=== PATIENT | female | born 1935 | race Caucasian/White ===

== ENCOUNTER 2017-01-14 05:37 | Inpatient (IN) | payer MEDICARE ==
[2017-01-11 13:40] VITALS: BMI 35.7
[2017-01-14] MEDS ORDERED: Midazolam HCl 2 mg/2 ml Vial ONE (06:05)
[2017-01-14] MEDS ORDERED: Fentanyl 100 MCG/2 ML VIAL ONE ×4 (06:05→09:57)
[2017-01-14] MEDS ORDERED: Sodium Chloride 0.9% 10 ML ONE (06:47)
[2017-01-14] MEDS ORDERED: Glycopyrrolate 0.2 MG/ML 5 ML SYRINGE ONE (07:28)
[2017-01-14] MEDS ORDERED: Propofol 200 MG/20 ML VIAL ONE (07:28)
[2017-01-14] MEDS ORDERED: Lidocaine 1% PF 5 ML VIAL ONE (07:28)
[2017-01-14] MEDS ORDERED: Ondansetron HCl/PF 4 MG/2 ML Vial ONE (07:28)
[2017-01-14] MEDS ORDERED: Dexamethasone 20 MG/5 ML VIAL ONE (07:28)
[2017-01-14] MEDS ORDERED: Morphine Sulfate 2 MG/ML SYRINGE SLOW IVP PRN (07:49)
[2017-01-14] MEDS ORDERED: Promethazine HCl 25 MG/ML VIAL SLOW IVP PRN (07:49)
[2017-01-14] MEDS ORDERED: Meperidine HCl/PF 25 MG/ML VIAL SLOW IVP PRN (07:49)
[2017-01-14] MEDS ORDERED: Labetalol HCl 100 MG/20 ML VIAL ONE (09:02)
[2017-01-14] MEDS ORDERED: Labetalol HCl 100 MG/20 ML VIAL SLOW IVP PRN (09:05)
--- NOTE | 2017-01-14 09:17 | OP ---
DATE OF PROCEDURE: 01/14/2017 SURGEON: Oz Lundy M.D. [employer]PER[employer]: [facility] Collier PROCEDURES PERFORMED: Removal of hardware C6-C7, exploration of spinal fusion C6-C7, anterior cervi paul discectomy and fusion C4-C5 and C5-C6, interbody arthrodesis, intervertebral biomechanical devic e, local morselized autograft, demineralized bone matrix, anterior titanium instrumentation C4-C5 an d C5-C6. PROCEDURE IN DETAIL: The patient was brought into the operating room and intubated. She was positi oned supine with the head in modest extension on a gel-filled donut. Incision was made in the right precervical area and dissecting medial to the sternocleidomastoid muscle. We identified the anteri or cervical spine and our level was confirmed by x-ray. We removed the prior plate and explored the spinal fusion and found to be solid. We placed distraction between C4 and C6, incised the interver tebral disc, removed the anterior bone spurs and using the operating microscope and microdissection techniques, completely decompressed the neural elements between C4 and C6 beneath the posterior long itudinal ligament. Next, the bony endplates were decorticated for the purpose of arthrodesis and ap propriately sized intervertebral biomechanical PEEK device were brought into the field, filled with demineralized bone matrix and local morselized autograft, and tapped into place securely at C4-C5 an d C5-C6. Next, an anterior plate was brought in the field and secured to C4, C5, and C6 using two 1 4 mm screws at each level. The wound was then extensively irrigated, immaculate hemostasis was secu red, and the wound was closed in anatomic layers over a drain.
[2017-01-14] MEDS ORDERED: Promethazine HCl 25 MG/ML VIAL ONE (10:32)
[2017-01-14] MEDS ORDERED: Acetaminophen 325 MG TAB PO PRN (12:36)
[2017-01-14] MEDS ORDERED: Acetaminophen 650 MG Suppository PR PRN (12:36)
[2017-01-14] MEDS ORDERED: Sodium Chloride 0.9% 1,000 ML IV SCH ×2 (12:36→14:18)
[2017-01-14] MEDS ORDERED: Ondansetron HCl/PF 4 MG/2 ML Vial IVP PRN (12:38)
[2017-01-14] MEDS: tiZANidine HCl 4 MG TAB PO PRN (12:46)
[2017-01-14] MEDS: HYDROcodone/Acetaminophen 7.5/325 mg Tablet PO PRN ×2 (14:16→20:30)
[2017-01-14] MEDS ORDERED: Dextrose 5% in Water 1,000 ML IV PRN (14:21)
[2017-01-14] MEDS ORDERED: Dextrose 50% Abboject 50 ML SYRINGE SLOW IVP PRN (14:21)
[2017-01-14] MEDS ORDERED: Benzonatate 100 MG CAP PO PRN (14:28)
[2017-01-14] MEDS ORDERED: cloNIDine HCl 0.1 MG TAB PO PRN (14:28)
[2017-01-14] MEDS ORDERED: Docusate 100 MG CAP PO PRN (14:28)
[2017-01-14] MEDS ORDERED: Nitroglycerin 0.4 MG TAB (25 Tab Bottle) SL PRN (14:28)
[2017-01-14] MEDS ORDERED: Zolpidem Tartrate 5 MG TAB PO PRN (14:28)
[2017-01-14 14:49] LABS: #Monocytes 0.1 thou/uL (0.11-0.59); #Neutrophils 12.8 thou/uL (1.40-6.50); %Basophils 0.1 % (0.0-1.0); %Eosinophils 0.2 % (0.0-10.0); %Lymphocytes 7.5 % (21.0-51.0); %Monocytes 0.6 % (0.0-10.0); Hematocrit 39.2 % (36.0-47.0); Mean Platelet Volume 8.9 fL (7.4-10.4); Red Blood Cell (RBC) Count 4.04 mill/uL (4.20-5.40); White Blood Cell (WBC) Count 13.9 thou/uL (4.8-10.8)
[2017-01-14 15:04] LABS: Anion Gap 17 mmol/L (10-20); BUN (Urea Nitrogen) 37 mg/dL (9.8-20.1); Calc. Creatinine Clearance 38 mL/min (70-130); Calcium 9.5 mg/dL (7.8-10.44); Carbon Dioxide 20 mmol/L (23-31); Chloride 104 mmol/L (98-107); Estimated GFR-MDRD 27
[2017-01-14] MEDS: HumaLOG 300 UNITS/3 ML VIAL SC PRN ×2 (15:09→22:27)
[2017-01-14] MEDS ORDERED: Atorvastatin Calcium 40 MG TAB PO SCH (21:00)
--- NOTE | 2017-01-14 22:04 | CON ---
DATE OF CONSULTATION: 01/14/2017 CONSULTING PHYSICIAN: Dr. Lundy. REASON FOR CONSULTATION: Medical management. REASON FOR ADMISSION: Neck surgery. HISTORY OF PRESENT ILLNESS: A 81-year-old white female with past medical history of hypertension, hyperlipidemia, obstructive sleep apnea, CKD, type 2 diabetes, hypothyroidism, who came to the hospital with neck pain and had elective surgery with a cervical fusion surgery. She is admitted overnight for observation and Medicine team is consulted for medical management. Patient is feeling better other than the pain and she is on pain medicine ordered. She denies any nausea, vomiting. She has been started on some ice chips and is tolerating well. She could not take pills without eating anything. No fever or chills reported. No skin rash. No belly pain. No abdominal pain. No chest pain, palpitation, shortness of breath. PAST MEDICAL HISTORY: Positive for hypertension, hyperlipidemia, obstructive sleep apnea, CKD, type 2 diabetes, hypothyroidism, chronic pain, osteoarthritis , obesity. PAST SURGICAL HISTORY: Plastic surgery, back surgery, right cataract surgery, neck surgery, left knee scope and right breast tumor removal, hysterectomy. HOME MEDICATIONS: Glipizide 5 mg q.a.m., Benadryl 50 mg p.o. b.i.d., Aldactone 25 p.o. q.a.m., ranitidine 75 mg p.o. at bedtime, metoprolol 25 mg q.a.m., Synthroid 100 mcg p.o. q.a.m., Lantus 35 units in the morning and 60 units in the evening, 1 mg p.o. q.a.m., vitamin D3 1000 p.o. b.i.d., Lipitor 40 mg at bedtime, allopurinol 150 mg p.o. q.a.m. ALLERGIES: Allergic to FUROSEMIDE. SOCIAL HISTORY: No smoking, alcohol, or illicit drug abuse. FAMILY HISTORY: No history of any heart disease reported. REVIEW OF SYSTEMS: The following complete review of systems was negative, unless otherwise mentioned in the HPI or below: Constitutional: Weight loss or gain, ability to conduct usual activities. Skin: Rash, itching. Eyes: Double vision, pain. ENT/Mouth: Nose bleeding, neck stiffness, pain, tenderness. Cardiovascular: Palpitations, dyspnea on exertion, orthopnea. Respiratory: Shortness of breath, wheezing, cough, hemoptysis, fever or night sweats. Gastrointestinal: Poor appetite, abdominal pain, heartburn, nausea, vomiting, constipation, or diarrhea. Genitourinary: Urgency, frequency, dysuria, nocturia. Musculoskeletal: Pain, swelling. Neurologic/Psychiatric: Anxiety, depression. Allergy/Immunologic: Skin rash, bleeding tendency. PHYSICAL EXAMINATION: GENERAL: This is an elderly female in no apparent distress. VITAL SIGNS: Temperature 97.9, pulse . HEENT: Atraumatic, normocephalic. Oral mucosa is moist. NECK: Supple. CARDIOVASCULAR: S1, S2 heard. Regular rate and rhythm. RESPIRATORY: Clear. GI: Abdomen is soft. Bowel sounds are heard. MUSCULOSKELETAL: No tenderness. No edema. DERMATOLOGIC: No skin rash. NEUROLOGIC: Alert, awake, moving all the extremities. PSYCHIATRIC: Mood and affect normal. LABORATORY AND X-RAY FINDINGS: Not done today. Recently potassium was 5.2. Plan is to repeat labs. ASSESSMENT AND PLAN: 1. Cervical pain with chronic pain and status post cervical fusion. 2. Type 2 diabetes, on glipizide and Lantus at home. Plan is to hold Lantus and glipizide. We will continue on sliding scale insulin. Patient will be monitored. Her last glucose was only 111. She was n.p.o. and will adjust the medication based on her blood sugar level. We will continue to monitor a.c. and at bedtime. 3. History of edema. We will hold spironolactone given hyperkalemia and she is currently on IV fluids postoperatively. 4. History of hypertension. We will continue on home medications. 5. History of hypothyroidism. We will continue levothyroxine at home doses as tolerated. 6. Hyperlipidemia. Continue on statin. 7. History of gout. We will continue on allopurinol. 8. Pain control P.r.n. order set will be placed. 9. Diet: Ordered. The patient will be monitored closely. Thank you for the consult. We will follow. MEHRDADD
[2017-01-15] MEDS: HYDROcodone/Acetaminophen 7.5/325 mg Tablet PO PRN ×2 (05:31→13:07)
[2017-01-15] MEDS: HumaLOG 300 UNITS/3 ML VIAL SC PRN ×2 (05:34→12:57)
--- NOTE | 2017-01-15 08:51 | PDOC.PN ---
- Subjective Encounter Start Date: 01/15/17 Encounter Start Time: 08:47 Patient seen and examined. No new complaints. No overnight events. Vomited this AM as she took meds empty stomach. pain better and feels better. KARLI drain out wants to go home. working with PT this AM. - Objective MAR Reviewed: Yes Vital Signs & Weight: Vital Signs (12 hours) Temp Pulse Resp BP Pulse Ox 01/15/17 08:00 97.6 F 74 20 170/72 H 01/15/17 04:45 98.2 F 69 16 157/97 H 96 01/15/17 00:15 17 Weight Weight 215 lb I&O: 01/14/17 01/15/17 01/16/17 06:59 06:59 06:59 Output Total 29 Balance -29 Result Diagrams: 01/14/17 14:38 01/14/17 14:38 Additional Labs: Accuchecks 01/15/17 01/14/17 01/14/17 05:33 22:16 15:58 POC Glucose 213 H 274 H 254 H 01/14/17 15:04 POC Glucose 251 H Phys Exam - Physical Examination Constitutional: NAD HEENT: sclera anicteric Neck: supple Respiratory: no wheezing, no rales Cardiovascular: RRR Gastrointestinal: soft Musculoskeletal: no edema Neurological: non-focal, moves all 4 limbs Psychiatric: normal affect, A&O x 3 Skin: no rash Dx/Plan (1) Diabetes mellitus Code(s): E11.9 - TYPE 2 DIABETES MELLITUS WITHOUT COMPLICATIONS Status: Acute (2) HTN (hypertension) Code(s): I10 - ESSENTIAL (PRIMARY) HYPERTENSION Status: Acute (3) Hypothyroidism Code(s): E03.9 - HYPOTHYROIDISM, UNSPECIFIED Status: Acute (4) Gout Code(s): M10.9 - GOUT, UNSPECIFIED Status: Acute - Plan cont current plan of care, plan discussed w/ family * . wiill lower dose of home insulin and titrate as needed. continue to monitor BG. DC IV fluids will hold spironolactone post op will increase the metoprolol dose and monitor BP after the AM dose today. will titrate the doses as needed. DC planning per primary team. will follow.
[2017-01-15] MEDS ORDERED: Levothyroxine Sodium 100 MCG TAB PO SCH (09:00)
[2017-01-15] MEDS ORDERED: ESTRADIOL 1 MG PO SCH (09:00)
[2017-01-15] MEDS ORDERED: Estradiol 1 MG TAB PO SCH (09:00)
[2017-01-15] MEDS ORDERED: Non-Formulary Item 1 EACH (Metoprolol Succinate [Metoprolol Succinate] 25 MG) PO SCH (09:00)
[2017-01-15] MEDS ORDERED: Allopurinol 300 MG TAB PO SCH (09:00)
[2017-01-15] MEDS ORDERED: Insulin Detemir 100 UNITS/ML 15 UNITS in Pre-Filled Syringe 1 EACH SC SCH (09:00)
[2017-01-15 11:30] VITALS: BP 170/75; TEMP 97.8
[2017-01-15] MEDS: tiZANidine HCl 4 MG TAB PO PRN (15:56)
[2017-01-15] MEDS ORDERED: Insulin Detemir 100 UNITS/ML 8 UNITS in Pre-Filled Syringe 1 EACH SC SCH (21:00)
--- NOTE | 2017-01-15 22:42 | DIS ---
The patient is an 81-year-old, female with past medical history of cervical stenosis with cervical myelopathy, who underwent C4-C6 ACDF. The patient's surgery was uncomplicated; however, KARLI drain was placed intraoperatively. KARLI had minimal output overnight and was removed the next mornin g. The patient tolerated the surgery well. Her pain was well controlled with p.o. medications. Kristi ny was ambulatory in the department without difficulty. She received PT and OT therapy, who agreed t hat patient was appropriate for discharge home. She is tolerating her diet, voiding appropriately. Her incision is soft. Dressing is dry. I discussed the patient home care and instructions. She w ill follow up with us in 2 weeks as scheduled. I provided her with scripts for [facility] and Zanaflex. She is instructed to reach out for any additional questions or concerns.
== END 2017-01-15 16:00 | disposition home or self-care (01) | DRG 473 ==
LOC: SURG A 05:37 → 3SE 10:02 → EDSTATUS 13:50
PROVIDERS: ADMIT Neurological Surgery; ATTEND Neurological Surgery
PROC: 0RG20A0 Fusion of 2 or more Cervical Vertebral Joints with Interbody Fusion Device, Anterior Approach, Anterior Column, Open Approach (ICD-10-PCS; principal; 2017-01-14)
PROC: 0RG2070 Fusion of 2 or more Cervical Vertebral Joints with Autologous Tissue Substitute, Anterior Approach, Anterior Column, Open Approach (ICD-10-PCS; 2017-01-14)
PROC: 0RB30ZZ Excision of Cervical Vertebral Disc, Open Approach (ICD-10-PCS; 2017-01-14)
PROC: 0RP104Z Removal of Internal Fixation Device from Cervical Vertebral Joint, Open Approach (ICD-10-PCS; 2017-01-14)
DX: M47.12 Other spondylosis with myelopathy, cervical region (principal); E11.22 Type 2 diabetes mellitus with diabetic chronic kidney disease; E87.5 Hyperkalemia; M48.02 Spinal stenosis, cervical region; E78.5 Hyperlipidemia, unspecified; E03.9 Hypothyroidism, unspecified; M19.90 Unspecified osteoarthritis, unspecified site; E66.9 Obesity, unspecified; Z68.35 Body mass index [BMI] 35.0-35.9, adult; I12.9 Hypertensive chronic kidney disease with stage 1 through stage 4 chronic kidney disease, or unspecified chronic kidney disease; N18.2 Chronic kidney disease, stage 2 (mild); G47.33 Obstructive sleep apnea (adult) (pediatric); G89.29 Other chronic pain
CPT/HCPCS: 36415; 36416; 80048; 85025; 85027; 93005; 93010; A4216; C1713; G8978-GP-CH; G8979-GP-CH; G8980-GP-CH; J0360; J1100; J1815; J2001; J2250; J2270; J2405; J2550; J2704; J3010; J3490

== ENCOUNTER 2017-01-28 09:36 | Outpatient (CLI) | payer MEDICARE ==
--- NOTE | 2017-01-28 11:00 | RAD ---
4 VIEWS CERVICAL SPINE: Date: 01/28/17 CLINICAL INDICATION: Two week postop from cervical spine surgery. COMPARISON: MRI of the cervical spine dated 12/04/16. FINDINGS: Since the comparison MR examination, there has been interval revision of the ACDF now spanning C4 th rough C6. Intervertebral cages are seen at C4-5 and C5-6. Spinal alignment is preserved. The instrum entation projects in the expected position. No acute fracture or subluxation is evident. IMPRESSION: Postoperative cervical spine. POS: THANH
== END 2017-01-28 09:37 | disposition home or self-care (01) ==
LOC: TBSIIMAG 09:36
PROVIDERS: ATTEND Physician Assistant
DX: M47.12 Other spondylosis with myelopathy, cervical region (principal); Z98.1 Arthrodesis status
CPT/HCPCS: 72040

== ENCOUNTER 2017-03-19 14:10 | Outpatient (CLI) | payer MEDICARE ==
--- NOTE | 2017-03-19 18:31 | RAD ---
EXAM: FOUR VIEWS CERVICAL SPINE 03/19/17 HISTORY: Cervical stenosis. Previous surgery. COMPARISON: 01/28/17 FINDINGS: AP, lateral, neutral, lateral, swimmer's and open mouth views cervical spine are submitted for interp retation. On the open mouth projection, the bodies of the odontoid process is obscured. Lateral masses of C1 an d C2 articulate appropriately. On the AP projection, stable degenerative change of the facets. On the lateral and swimmer's views, the cervicothoracic junction is poorly defined. There is an anter ior fusion plate with transvertebral body screw at C4, C5 and C6. No perihardware lucency. Prosthesis of C4-C5 and C5-C6 disc space is noted. There is stable severe degenerative change of the cervical s pine at C3-C4. Cervical spine vertebral body heights are maintained. No fracture. . IMPRESSION: Cervical fusion changes as above. POS: TREVIN
== END 2017-03-19 14:11 | disposition home or self-care (01) ==
LOC: TBSIIMAG 14:10
PROVIDERS: ATTEND Neurological Surgery
DX: M48.02 Spinal stenosis, cervical region (principal); Z98.1 Arthrodesis status
CPT/HCPCS: 72040

== ENCOUNTER 2021-04-26 10:56 | Emergency (ER) | payer MEDICARE ==
[2021-04-26] MEDS ORDERED: HYDROcodone/Acetaminophen 5/325 mg Tablet ONE (12:26)
== END 2021-04-26 14:00 | disposition home or self-care (01) ==
LOC: ERS 10:56
DX: M54.50 Low back pain, unspecified (principal); E11.9 Type 2 diabetes mellitus without complications; Z98.890 Other specified postprocedural states
CPT/HCPCS: 72100

== ENCOUNTER 2022-05-24 14:15 | Outpatient (CLI) | payer MEDICARE | END 2022-05-24 14:16 | disposition home or self-care (01) | LOC: ULT 14:15 | PROVIDERS: ATTEND Internal Medicine Nephrology | DX: Z01.818 Encounter for other preprocedural examination (principal) | CPT/HCPCS: 93970 ==